=== PATIENT | female | born 1970 | race Caucasian/White ===

== ENCOUNTER 2021-08-25 21:36 | Emergency (ER) | payer MEDICAID ==
[~2021-08-25] VITALS: Ht 167.6 cm; Wt 68.2 kg
[2021-08-25] MEDS ORDERED: ASPI-1444 PO (21:53)
[2021-08-25 22:49] LABS: BASOPHILS % (AUTO) 1.1 % (0.0-2.0); EOSINOPHILS % (AUTO) 3.5 % (1.0-6.0); HEMATOCRIT 36.9 % (36-46); HEMOGLOBIN 12.7 g/dL (12.0-16.0); LYMPHOCYTES # (AUTO) 2.2 K/uL (1.0-4.8); LYMPHOCYTES % (AUTO) 37.5 % (22.0-44.0); MEAN CORPUSCULAR HEMOGLOBIN 31.4 pg (26.0-34.0); MEAN CORPUSCULAR HGB CONC 34.5 G/dL (31.0-37.0); MEAN CORPUSCULAR VOLUME 91 fL (80-100); MONOCYTES # (AUTO) 0.6 K/uL (0.1-1.0); NEUTROPHILS # (AUTO) 2.9 K/uL (1.8-7.7); NEUTROPHILS % (AUTO) 47.9 % (40.0-70.0); PLATELET COUNT (AUTO) 346 K/uL (150-450); RED BLOOD CELL COUNT(AUTO) 4.05 MIL/uL (4.00-5.20); RED CELL DISTRIBUTION WIDTH 16.2 % (11.5-14.5)
[2021-08-25 22:59] LABS: ANION GAP 11 mmol/L (8-16); CALCIUM, TOTAL 8.6 mg/dL (8.8-10.5); CARBON DIOXIDE 26 mmol/L (22-29); CHLORIDE 110 mmol/L (98-107); CREATININE 0.77 mg/dL (0.60-1.30); GLOMERULAR FILTR. RATE CALC > 60 mL/min (>60); GLUCOSE,RANDOM 99 mg/dL (70-110); POTASSIUM 3.5 mmol/L (3.5-5.1); SODIUM SERUM 147 mmol/L (136-145); UREA NITROGEN, BLOOD 15 mg/dL (7-18)
[2021-08-25 23:04] LABS: ALANINE AMINOTRANSFERASE 25 U/L (12-78); ALBUMIN 3.5 g/dL (3.4-5.0); ALKALINE PHOSPHATASE 79 U/L (46-116); ASPARTATE AMINOTRANSFERASE 34 U/L (15-37); BILIRUBIN,TOTAL 0.2 mg/dL (0.1-1.0); LIPASE 143 U/L (73-393); TOTAL PROTEIN, SERUM 7.1 g/dL (6.4-8.2)
[2021-08-25 23:35] VITALS: BP 155/85
== END 2021-08-26 00:01 | disposition home or self-care (01) ==
LOC: EMS 21:41
DX: S62.666A Nondisplaced fracture of distal phalanx of right little finger, initial encounter for closed fracture (principal); F31.9 Bipolar disorder, unspecified; E11.9 Type 2 diabetes mellitus without complications; Z86.79 Personal history of other diseases of the circulatory system; F17.210 Nicotine dependence, cigarettes, uncomplicated; Z88.8 Allergy status to other drugs, medicaments and biological substances; X58.XXXA Exposure to other specified factors, initial encounter; Y93.89 Activity, other specified; Y92.89 Other specified places as the place of occurrence of the external cause; Y99.8 Other external cause status
CPT/HCPCS: 80053; 83690; 85025; 99283; 99284

== ENCOUNTER 2023-07-25 08:37 | Inpatient (IN) | payer MEDICAID ==
[~2023-07-25] VITALS: Ht 167.6 cm; Wt 68.3 kg
[~2023-07-25 08:37] MED LIST: ASPI-1444 PO
[2023-07-25] MEDS ORDERED: ATOR-2 PO (08:47)
[2023-07-25] MEDS ORDERED: QUET100T34 PO (08:47)
[2023-07-25] MEDS ORDERED: ALBU18HF12 IH (08:47)
[2023-07-25] MEDS ORDERED: FLUO40CA PO (08:47)
[2023-07-25] MEDS ORDERED: METF-81 PO (08:47)
[2023-07-25] MEDS ORDERED: UMEC1DIS IH (08:47)
[2023-07-25] MEDS ORDERED: BUPR-317 PO (08:47)
[2023-07-25] MEDS ORDERED: BUDE3CAP7 PO (08:47)
[2023-07-25] MEDS ORDERED: GABA-1181 PO (08:47)
[2023-07-25 09:10] LABS: BASOPHILS % (AUTO) 0.6 % (0.0-2.0); EOSINOPHILS % (AUTO) 2.6 % (1.0-6.0); HEMATOCRIT 43.1 % (36-46); HEMOGLOBIN 14.1 g/dL (12.0-16.0); LYMPHOCYTES # (AUTO) 1.3 K/uL (1.0-4.8); LYMPHOCYTES % (AUTO) 11.6 % (22.0-44.0); MEAN CORPUSCULAR HGB CONC 32.7 G/dL (31.0-37.0); MEAN CORPUSCULAR VOLUME 89 fL (80-100); MONOCYTES % (AUTO) 8.7 % (2.0-9.0); NEUTROPHILS # (AUTO) 8.4 K/uL (1.8-7.7); NEUTROPHILS % (AUTO) 76.5 % (40.0-70.0); PLATELET COUNT (AUTO) 556 K/uL (150-450); RED BLOOD CELL COUNT(AUTO) 4.87 MIL/uL (4.00-5.20); RED CELL DISTRIBUTION WIDTH 14.8 % (11.5-14.5); WHITE BLOOD COUNT (AUTO) 11.1 K/uL (4.5-11.0)
[2023-07-25 09:20] LABS: PROTHROMBIN TIME 10.7 SEC (9.4-11.6)
[2023-07-25 09:21] LABS: ANION GAP 9 mmol/L (8-16); CALCIUM, TOTAL 10.1 mg/dL (8.8-10.5); CARBON DIOXIDE 26 mmol/L (22-29); CHLORIDE 103 mmol/L (98-107); CREATININE 0.83 mg/dL (0.60-1.30); GLOMERULAR FILTR. RATE CALC > 60 mL/min (>60); GLUCOSE,RANDOM 105 mg/dL (70-110); POTASSIUM 3.8 mmol/L (3.5-5.1); SODIUM SERUM 138 mmol/L (136-145); UREA NITROGEN, BLOOD 24 mg/dL (7-18)
[2023-07-25] MEDS: ASPIRIN 300 MG RECTAL SUPPOSITORY PR ONE (09:22)
[2023-07-25 09:25] LABS: ALANINE AMINOTRANSFERASE 19 U/L (12-78); ALBUMIN 2.7 g/dL (3.4-5.0); ALKALINE PHOSPHATASE 135 U/L (46-116); ASPARTATE AMINOTRANSFERASE 17 U/L (15-37); BILIRUBIN,TOTAL 0.3 mg/dL (0.1-1.0); TOTAL PROTEIN, SERUM 7.8 g/dL (6.4-8.2)
[2023-07-25 09:27] LABS: TROPONIN I-HIGH SENSITIVITY 6 ng/L (<51)
[2023-07-25] MEDS ORDERED: ONDANSETRON HCL 4 MG/2 ML VIAL IVP PRN ×2 (10:00→16:00)
[2023-07-25 13:00] VITALS: BP 118/62; PULSE 59; RESP 18; TEMP 98.2; O2SAT 95
[2023-07-25] MEDS ORDERED: PNEUMOCOCCAL VACCINE POLYVALENT 0.5 ML SYRINGE [PPSV23] IM. ONE (13:30)
[2023-07-25 15:57] VITALS: BP 109/69; PULSE 58; RESP 16; TEMP 97.7; O2SAT 95
[2023-07-25] MEDS ORDERED: ALBUTEROL SULFATE 2.5 MG/0.5 ML NEB SOLUTION NEB PRN (16:00)
[2023-07-25] MEDS ORDERED: MAGNESIUM HYDROXIDE SUSPENSION 30 ML UDCUP PO PRN (16:00)
[2023-07-25] MEDS: HEPARIN SODIUM,PORCINE 5,000 UNITS/ML VIAL SQ SCH (17:15)
[2023-07-25] MEDS: INSULIN LISPRO 100 UNITS/ML SQ PRN (17:17)
[2023-07-25 20:01] VITALS: BP 123/71; PULSE 60; RESP 17; TEMP 98.1; O2SAT 3; O2SAT 94
[2023-07-25] MEDS: DEXTROSE 5%-0.45% SODIUM CHL 1,000 ML IV SCH (20:52)
[2023-07-25] MEDS: ATORVASTATIN CALCIUM 20 MG TABLET PO SCH (21:00)
[2023-07-25] MEDS: DOCUSATE SODIUM 100 MG CAPSULE PO SCH (21:00)
[2023-07-26 00:29] VITALS: BP 120/65; PULSE 62; RESP 17; TEMP 98; O2SAT 95
[2023-07-26] MEDS: ZOLPIDEM TARTRATE 5 MG TABLET PO PRN (01:40)
[2023-07-26] MEDS ORDERED: ZOLPIDEM TARTRATE 5 MG TABLET PO PRN (01:45)
[2023-07-26 06:03] VITALS: BP 132/70; PULSE 80; RESP 18; TEMP 98.2; O2SAT 97
[2023-07-26 07:12] LABS: BASOPHILS % (AUTO) 0.6 % (0.0-2.0); EOSINOPHILS % (AUTO) 1.2 % (1.0-6.0); HEMATOCRIT 45.7 % (36-46); HEMOGLOBIN 14.9 g/dL (12.0-16.0); LYMPHOCYTES # (AUTO) 1.3 K/uL (1.0-4.8); LYMPHOCYTES % (AUTO) 8.2 % (22.0-44.0); MEAN CORPUSCULAR HEMOGLOBIN 29.1 pg (26.0-34.0); MEAN CORPUSCULAR HGB CONC 32.7 G/dL (31.0-37.0); MEAN CORPUSCULAR VOLUME 89 fL (80-100); MONOCYTES % (AUTO) 6.6 % (2.0-9.0); NEUTROPHILS # (AUTO) 13.2 K/uL (1.8-7.7); NEUTROPHILS % (AUTO) 83.4 % (40.0-70.0); PLATELET COUNT (AUTO) 600 K/uL (150-450); RED BLOOD CELL COUNT(AUTO) 5.12 MIL/uL (4.00-5.20); RED CELL DISTRIBUTION WIDTH 14.6 % (11.5-14.5); WHITE BLOOD COUNT (AUTO) 15.8 K/uL (4.5-11.0)
[2023-07-26 07:29] VITALS: BP 143/90; PULSE 74; RESP 18; TEMP 98.1; O2SAT 95
[2023-07-26 07:34] LABS: ANION GAP 12 mmol/L (8-16); CALCIUM, TOTAL 10.3 mg/dL (8.8-10.5); CARBON DIOXIDE 23 mmol/L (22-29); CHLORIDE 100 mmol/L (98-107); CHOLESTEROL 146 mg/dL (131-200); CREATININE 0.75 mg/dL (0.60-1.30); GLOMERULAR FILTR. RATE CALC > 60 mL/min (>60); GLUCOSE,RANDOM 108 mg/dL (70-110); HDL CHOLESTEROL 49 mg/dL (40-60); LDL CHOL (CALC.) 73 mg/dL (0-130); POTASSIUM 3.5 mmol/L (3.5-5.1); SODIUM SERUM 135 mmol/L (136-145); THYROID STIMULATING HORMONE 3.57 uIU/mL (0.36-3.74); TRIGLYCERIDES 119 mg/dL (15-150); UREA NITROGEN, BLOOD 23 mg/dL (7-18)
[2023-07-26] MEDS: ASPIRIN 81 MG CHEWABLE TABLET PO SCH (11:17)
[2023-07-26] MEDS: PANTOPRAZOLE SODIUM 40 MG DR TABLET PO SCH (11:17)
[2023-07-26 11:30] VITALS: BP 114/72; PULSE 66; RESP 19; TEMP 98; O2SAT 97
[2023-07-26 15:33] VITALS: BP 118/64; PULSE 57; RESP 19; TEMP 98.2; O2SAT 96
[2023-07-26 16:16] LABS: APPEARANCE,URINE CLEAR (CLEAR); BILIRUBIN,URINE NEGATIVE (NEGATIVE); COLOR,URINE YELLOW (YELLOW); GLUCOSE, URINE (UA) NEGATIVE (NEGATIVE); KETONES,URINE NEGATIVE (NEGATIVE); LEUKOCYTE ESTERASE ,URINE NEGATIVE (NEGATIVE); NITRATE,URINE NEGATIVE (NEGATIVE); OCCULT BLOOD,URINE NEGATIVE (NEGATIVE); PROTEIN,URINE NEGATIVE (NEGATIVE); SPECIFIC GRAVITIY, URINE 1.027 (1.003-1.030); UROBILINOGEN,URINE <=1.0 mg/dL (<=1.0)
[2023-07-26 16:23] LABS: ALCOHOL, URINE DRUG SCREEN NEGATIVE (NEGATIVE); AMPHET/METH SCREEN,URINE NEGATIVE (NEGATIVE); BARBITURATE SCREEN, URINE NEGATIVE (NEGATIVE); BENZODIAZEPINES SCREEN,URINE NEGATIVE (NEGATIVE); CANNABINOID SCREEN,URINE NEGATIVE (NEGATIVE); COCAINE SCREEN,URINE NEGATIVE (NEGATIVE); METHADONE SCREEN, URINE NEGATIVE (NEGATIVE); OPIATE SCREEN,URINE NEGATIVE (NEGATIVE); PHENCYCLIDINE SCREEN,URINE NEGATIVE (NEGATIVE)
[2023-07-26 16:35] LABS: BACTERIA,URINE None Seen /HPF (None Seen); RBC,URINE None Seen /HPF (0-2); SQUAMOUS EPITHELIAL CELL,UR Few /LPF (None Seen); WBC,URINE None Seen /HPF (0-5)
[2023-07-26] MEDS: CYCLOBENZAPRINE HCL 10 MG TABLET PO PRN (18:04)
[2023-07-26 19:20] VITALS: BP 116/63; PULSE 68; RESP 19; TEMP 98.1; O2SAT 96
[2023-07-26 21:36] LABS: GLUCOMETER DEV NAME(LOC) 5N.2C; GLUCOSE,POINT OF CARE 160 MG/DL (70-110)
[2023-07-27] VITALS: BP 121/70; PULSE 73; RESP 16; TEMP 98.3; O2SAT 96
[2023-07-27 04:00] VITALS: BP 114/82; PULSE 56; RESP 18; TEMP 98; O2SAT 96
[2023-07-27 06:16] LABS: ANION GAP 9 mmol/L (8-16); CALCIUM, TOTAL 10.2 mg/dL (8.8-10.5); CARBON DIOXIDE 25 mmol/L (22-29); CHLORIDE 103 mmol/L (98-107); CREATININE 0.81 mg/dL (0.60-1.30); GLOMERULAR FILTR. RATE CALC > 60 mL/min (>60); GLUCOSE,RANDOM 116 mg/dL (70-110); POTASSIUM 3.6 mmol/L (3.5-5.1); SODIUM SERUM 137 mmol/L (136-145); UREA NITROGEN, BLOOD 18 mg/dL (7-18)
[2023-07-27 06:22] LABS: BASOPHILS % (AUTO) 1.1 % (0.0-2.0); EOSINOPHILS % (AUTO) 2.9 % (1.0-6.0); HEMATOCRIT 41.5 % (36-46); HEMOGLOBIN 13.7 g/dL (12.0-16.0); LYMPHOCYTES # (AUTO) 1.6 K/uL (1.0-4.8); LYMPHOCYTES % (AUTO) 14.1 % (22.0-44.0); MEAN CORPUSCULAR HEMOGLOBIN 29.1 pg (26.0-34.0); MEAN CORPUSCULAR HGB CONC 33.1 G/dL (31.0-37.0); MEAN CORPUSCULAR VOLUME 88 fL (80-100); MONOCYTES # (AUTO) 0.8 K/uL (0.1-1.0); MONOCYTES % (AUTO) 6.8 % (2.0-9.0); NEUTROPHILS # (AUTO) 8.7 K/uL (1.8-7.7); NEUTROPHILS % (AUTO) 75.1 % (40.0-70.0); PLATELET COUNT (AUTO) 576 K/uL (150-450); RED BLOOD CELL COUNT(AUTO) 4.71 MIL/uL (4.00-5.20); RED CELL DISTRIBUTION WIDTH 14.8 % (11.5-14.5); WHITE BLOOD COUNT (AUTO) 11.5 K/uL (4.5-11.0)
[2023-07-27 07:30] VITALS: BP 122/67; PULSE 67; RESP 18; TEMP 97.7; O2SAT 99
[2023-07-27] MEDS: CLOPIDOGREL BISULFATE 75 MG TABLET PO SCH (09:23)
[2023-07-27 11:07] LABS: LDL CHOLESTEROL DIRECT 68 mg/dL (0-99)
[2023-07-27 11:48] VITALS: BP 112/62; PULSE 66; RESP 16; TEMP 97.6; O2SAT 99
[2023-07-27] MEDS: ALPRAZolam 0.25 MG TABLET PO PRN (12:34)
[2023-07-27 15:18] VITALS: BP 121/62; PULSE 79; RESP 18; TEMP 97.7; O2SAT 95
[2023-07-27 22:09] VITALS: BP 105/64; PULSE 80; RESP 18; TEMP 97.7; O2SAT 97
[2023-07-28] MEDS: ALPRAZolam 0.5 MG TABLET PO PRN (02:34)
[2023-07-28 05:08] VITALS: BP 119/72; PULSE 82; RESP 18; TEMP 97.9; O2SAT 95
[2023-07-28 06:36] LABS: GLUCOMETER DEV NAME(LOC) 4E.2; GLUCOSE,POINT OF CARE 121 MG/DL (70-110)
[2023-07-28 06:56] LABS: GLUCOMETER DEV NAME(LOC) 6S.2; GLUCOSE,POINT OF CARE 115 MG/DL (70-110)
[2023-07-28 07:17] LABS: BASOPHILS % (AUTO) 0.6 % (0.0-2.0); EOSINOPHILS % (AUTO) 3.3 % (1.0-6.0); HEMATOCRIT 42.4 % (36-46); HEMOGLOBIN 14.2 g/dL (12.0-16.0); LYMPHOCYTES # (AUTO) 1.8 K/uL (1.0-4.8); LYMPHOCYTES % (AUTO) 16.1 % (22.0-44.0); MEAN CORPUSCULAR HEMOGLOBIN 29.5 pg (26.0-34.0); MEAN CORPUSCULAR HGB CONC 33.4 G/dL (31.0-37.0); MEAN CORPUSCULAR VOLUME 88 fL (80-100); MONOCYTES # (AUTO) 0.9 K/uL (0.1-1.0); MONOCYTES % (AUTO) 8.1 % (2.0-9.0); NEUTROPHILS % (AUTO) 71.9 % (40.0-70.0); PLATELET COUNT (AUTO) 537 K/uL (150-450); RED BLOOD CELL COUNT(AUTO) 4.81 MIL/uL (4.00-5.20); RED CELL DISTRIBUTION WIDTH 14.7 % (11.5-14.5); WHITE BLOOD COUNT (AUTO) 11.2 K/uL (4.5-11.0)
[2023-07-28 07:48] LABS: ANION GAP 10 mmol/L (8-16); CALCIUM, TOTAL 10.2 mg/dL (8.8-10.5); CARBON DIOXIDE 25 mmol/L (22-29); CHLORIDE 102 mmol/L (98-107); CREATININE 0.88 mg/dL (0.60-1.30); GLOMERULAR FILTR. RATE CALC > 60 mL/min (>60); GLUCOSE,RANDOM 108 mg/dL (70-110); POTASSIUM 3.7 mmol/L (3.5-5.1); SODIUM SERUM 137 mmol/L (136-145); UREA NITROGEN, BLOOD 19 mg/dL (7-18)
[2023-07-28 08:00] VITALS: BP 103/61; PULSE 74; RESP 18; TEMP 98; O2SAT 96
[2023-07-28 12:08] LABS: GLUCOMETER DEV NAME(LOC) 5N.1C; GLUCOSE,POINT OF CARE 206 MG/DL (70-110)
[2023-07-28 12:09] LABS: GLUCOMETER DEV NAME(LOC) 5N.1C; GLUCOSE,POINT OF CARE 78 MG/DL (70-110)
[2023-07-28 12:09] LABS: GLUCOMETER DEV NAME(LOC) 5N.1C; GLUCOSE,POINT OF CARE 103 MG/DL (70-110)
[2023-07-28 12:09] LABS: GLUCOMETER DEV NAME(LOC) 5N.1C; GLUCOSE,POINT OF CARE 119 MG/DL (70-110)
[2023-07-28 12:25] LABS: GLUCOMETER DEV NAME(LOC) 5S.1B; GLUCOSE,POINT OF CARE 106 MG/DL (70-110)
[2023-07-28 12:25] LABS: GLUCOMETER DEV NAME(LOC) 5S.1B; GLUCOSE,POINT OF CARE 115 MG/DL (70-110)
[2023-07-28 12:25] LABS: GLUCOMETER DEV NAME(LOC) 5S.1B; GLUCOSE,POINT OF CARE 152 MG/DL (70-110)
[2023-07-28 12:25] LABS: GLUCOMETER DEV NAME(LOC) 5S.1B; GLUCOSE,POINT OF CARE 104 MG/DL (70-110)
[2023-07-28 13:41] LABS: GLUCOMETER DEV NAME(LOC) 6S.2; GLUCOSE,POINT OF CARE 105 MG/DL (70-110)
[2023-07-28 17:11] VITALS: BP 108/56; PULSE 78; RESP 18; TEMP 98.6; O2SAT 94
[2023-07-28 18:26] LABS: GLUCOMETER DEV NAME(LOC) 4E.2; GLUCOSE,POINT OF CARE 120 MG/DL (70-110)
[2023-07-28] MEDS: ATORVASTATIN CALCIUM 40 MG TABLET PO SCH (20:12)
[2023-07-28 20:22] VITALS: BP 104/58; PULSE 78; RESP 17; TEMP 98.6; O2SAT 94
[2023-07-29 06:53] VITALS: BP 118/77; PULSE 70; RESP 19; TEMP 98; O2SAT 98
[2023-07-29 08:30] VITALS: BP 129/68; PULSE 75; RESP 18; TEMP 98.9; O2SAT 94
[2023-07-29 12:30] LABS: GLUCOMETER DEV NAME(LOC) 6N.2B; GLUCOSE,POINT OF CARE 131 MG/DL (70-110)
[2023-07-29 12:30] LABS: GLUCOMETER DEV NAME(LOC) 6N.2B; GLUCOSE,POINT OF CARE 127 MG/DL (70-110)
[2023-07-29 12:31] LABS: GLUCOMETER DEV NAME(LOC) 6N.2B; GLUCOSE,POINT OF CARE 110 MG/DL (70-110)
[2023-07-29] MEDS ORDERED: LIDOCAINE 5% TRANSDERMAL PATCH TD PRN (14:00)
[2023-07-29 14:30] LABS: EOSINOPHILS % (AUTO) 3.1 % (1.0-6.0); HEMATOCRIT 45.5 % (36-46); HEMOGLOBIN 14.8 g/dL (12.0-16.0); LYMPHOCYTES # (AUTO) 1.7 K/uL (1.0-4.8); LYMPHOCYTES % (AUTO) 14.8 % (22.0-44.0); MEAN CORPUSCULAR HEMOGLOBIN 28.9 pg (26.0-34.0); MEAN CORPUSCULAR HGB CONC 32.5 G/dL (31.0-37.0); MEAN CORPUSCULAR VOLUME 89 fL (80-100); MONOCYTES # (AUTO) 0.7 K/uL (0.1-1.0); MONOCYTES % (AUTO) 5.7 % (2.0-9.0); NEUTROPHILS # (AUTO) 8.8 K/uL (1.8-7.7); NEUTROPHILS % (AUTO) 75.4 % (40.0-70.0); PLATELET COUNT (AUTO) 609 K/uL (150-450); RED BLOOD CELL COUNT(AUTO) 5.12 MIL/uL (4.00-5.20); RED CELL DISTRIBUTION WIDTH 14.6 % (11.5-14.5); WHITE BLOOD COUNT (AUTO) 11.7 K/uL (4.5-11.0)
[2023-07-29 14:46] LABS: ANION GAP 8 mmol/L (8-16); CALCIUM, TOTAL 10.4 mg/dL (8.8-10.5); CARBON DIOXIDE 26 mmol/L (22-29); CHLORIDE 101 mmol/L (98-107); CREATININE 0.82 mg/dL (0.60-1.30); GLOMERULAR FILTR. RATE CALC > 60 mL/min (>60); GLUCOSE,RANDOM 137 mg/dL (70-110); POTASSIUM 3.9 mmol/L (3.5-5.1); SODIUM SERUM 135 mmol/L (136-145); UREA NITROGEN, BLOOD 18 mg/dL (7-18)
[2023-07-29] MEDS ORDERED: IOHEXOL 350 MG/ML 100 ML VIAL ONE (15:28)
[2023-07-29] MEDS ORDERED: SODIUM CHLORIDE 0.9% 100 ML ONE (15:28)
[2023-07-29 16:00] VITALS: BP 111/73; PULSE 69; RESP 18; TEMP 98.8; O2SAT 95
[2023-07-29 19:51] LABS: GLUCOMETER DEV NAME(LOC) 6N.2B; GLUCOSE,POINT OF CARE 107 MG/DL (70-110)
[2023-07-29 20:41] VITALS: BP 110/68; PULSE 75; RESP 18; TEMP 98.3; O2SAT 94
[2023-07-30 02:34] LABS: APPEARANCE,URINE CLEAR (CLEAR); BILIRUBIN,URINE NEGATIVE (NEGATIVE); COLOR,URINE LIGHT YELLOW (YELLOW); GLUCOSE, URINE (UA) NEGATIVE (NEGATIVE); KETONES,URINE NEGATIVE (NEGATIVE); LEUKOCYTE ESTERASE ,URINE TRACE (NEGATIVE); NITRATE,URINE NEGATIVE (NEGATIVE); OCCULT BLOOD,URINE NEGATIVE (NEGATIVE); PH,URINE 6.5 (5.0-8.0); PROTEIN,URINE TRACE mg/dL (NEGATIVE); UROBILINOGEN,URINE <=1.0 mg/dL (<=1.0)
[2023-07-30 02:48] LABS: BACTERIA,URINE None Seen /HPF (None Seen); CALCIUM OXALATE CRYSTALS,UR Few /LPF (None Seen); FINE GRANULAR CASTS,URINE 0-2 /LPF (None Seen); RBC,URINE None Seen /HPF (0-2); SQUAMOUS EPITHELIAL CELL,UR Few /LPF (None Seen); WBC,URINE 0-2 /HPF (0-5)
[2023-07-30 03:26] VITALS: BP 102/63; PULSE 76; RESP 18; TEMP 98.5; O2SAT 96
[2023-07-30] MEDS: HYDROmorphone HCL 2 MG/ML SYRINGE IVP PRN (03:26)
[2023-07-30 07:49] LABS: BASOPHILS % (AUTO) 1.3 % (0.0-2.0); EOSINOPHILS % (AUTO) 3.8 % (1.0-6.0); HEMATOCRIT 42.6 % (36-46); HEMOGLOBIN 14.2 g/dL (12.0-16.0); LYMPHOCYTES # (AUTO) 1.9 K/uL (1.0-4.8); LYMPHOCYTES % (AUTO) 14.7 % (22.0-44.0); MEAN CORPUSCULAR HEMOGLOBIN 29.2 pg (26.0-34.0); MEAN CORPUSCULAR HGB CONC 33.3 G/dL (31.0-37.0); MEAN CORPUSCULAR VOLUME 88 fL (80-100); MONOCYTES # (AUTO) 0.9 K/uL (0.1-1.0); MONOCYTES % (AUTO) 6.9 % (2.0-9.0); NEUTROPHILS # (AUTO) 9.2 K/uL (1.8-7.7); NEUTROPHILS % (AUTO) 73.3 % (40.0-70.0); PLATELET COUNT (AUTO) 607 K/uL (150-450); RED BLOOD CELL COUNT(AUTO) 4.86 MIL/uL (4.00-5.20); RED CELL DISTRIBUTION WIDTH 14.9 % (11.5-14.5); WHITE BLOOD COUNT (AUTO) 12.6 K/uL (4.5-11.0)
[2023-07-30 07:59] LABS: ANION GAP 10 mmol/L (8-16); CARBON DIOXIDE 25 mmol/L (22-29); CHLORIDE 100 mmol/L (98-107); CREATININE 0.89 mg/dL (0.60-1.30); GLUCOSE,RANDOM 123 mg/dL (70-110); POTASSIUM 3.9 mmol/L (3.5-5.1); SODIUM SERUM 135 mmol/L (136-145); UREA NITROGEN, BLOOD 19 mg/dL (7-18)
[2023-07-30 08:00] LABS: CALCIUM, TOTAL 10.4 mg/dL (8.8-10.5); GLOMERULAR FILTR. RATE CALC > 60 mL/min (>60)
[2023-07-30 09:20] VITALS: BP 106/61; PULSE 73; RESP 18; TEMP 98.3
[2023-07-30 09:26] LABS: GLUCOMETER DEV NAME(LOC) 6N.2B; GLUCOSE,POINT OF CARE 129 MG/DL (70-110)
[2023-07-30 09:26] LABS: GLUCOMETER DEV NAME(LOC) 6N.2B; GLUCOSE,POINT OF CARE 119 MG/DL (70-110)
[2023-07-30 11:46] VITALS: BP 106/61; PULSE 73; RESP 18; TEMP 98.3; O2SAT 90
[2023-07-30] MEDS ORDERED: SODIUM CHLORIDE 0.9% 500 ML IV ONE (14:38)
[2023-07-30] MEDS: CefTRIAXone 1 GM/DEXTROSE 50 ML IV SCH (14:48)
[2023-07-30] MEDS ORDERED: CEFT1VIA65 IV (15:38)
[2023-07-30] MEDS ORDERED: METR500 IV (15:43)
[2023-07-30 15:50] LABS: GLUCOMETER DEV NAME(LOC) 4E.2; GLUCOSE,POINT OF CARE 112 MG/DL (70-110)
[2023-07-30] MEDS: MetroNIDAZOLE 500 MG/NACL 100 ML IV SCH (16:12)
[2023-07-30 16:37] VITALS: BP 104/67; PULSE 74; RESP 18; TEMP 98.1; O2SAT 91
[2023-07-30 17:56] LABS: GLUCOMETER DEV NAME(LOC) 6S.2; GLUCOSE,POINT OF CARE 111 MG/DL (70-110)
[2023-07-30 20:02] VITALS: BP 104/56; PULSE 79; RESP 20; TEMP 97.9; O2SAT 94
[2023-07-30] MEDS ORDERED: SODIUM CHLORIDE 0.9% 1,000 ML ONE (22:08)
[2023-07-30 23:06] LABS: GLUCOMETER DEV NAME(LOC) 6N.2B; GLUCOSE,POINT OF CARE 111 MG/DL (70-110)
[2023-07-31] VITALS (7 sets, daily range): BP systolic 96–112; BP diastolic 56–70; PULSE 63–78; RESP 18–20; TEMP 98–98.3; O2SAT 92–97
[2023-07-31] MEDS: DEXTROSE 50%-WATER 25 GM/50 ML SYRINGE IVP PRN (05:41)
[2023-07-31 07:31] LABS: GLUCOMETER DEV NAME(LOC) 6S.2; GLUCOSE,POINT OF CARE 218 MG/DL (70-110)
[2023-07-31 07:31] LABS: GLUCOMETER DEV NAME(LOC) 6S.2; GLUCOSE,POINT OF CARE 68 MG/DL (70-110)
[2023-07-31 07:49] LABS: EOSINOPHILS % (AUTO) 4.8 % (1.0-6.0); HEMATOCRIT 40.9 % (36-46); HEMOGLOBIN 13.7 g/dL (12.0-16.0); LYMPHOCYTES # (AUTO) 1.4 K/uL (1.0-4.8); MEAN CORPUSCULAR HEMOGLOBIN 29.6 pg (26.0-34.0); MEAN CORPUSCULAR HGB CONC 33.6 G/dL (31.0-37.0); MEAN CORPUSCULAR VOLUME 88 fL (80-100); MONOCYTES # (AUTO) 0.9 K/uL (0.1-1.0); MONOCYTES % (AUTO) 7.2 % (2.0-9.0); PLATELET COUNT (AUTO) 561 K/uL (150-450); RED BLOOD CELL COUNT(AUTO) 4.64 MIL/uL (4.00-5.20); RED CELL DISTRIBUTION WIDTH 14.7 % (11.5-14.5)
[2023-07-31 07:58] LABS: ANION GAP 9 mmol/L (8-16); CALCIUM, TOTAL 9.9 mg/dL (8.8-10.5); CARBON DIOXIDE 26 mmol/L (22-29); CHLORIDE 99 mmol/L (98-107); CREATININE 0.93 mg/dL (0.60-1.30); GLOMERULAR FILTR. RATE CALC > 60 mL/min (>60); GLUCOSE,RANDOM 182 mg/dL (70-110); POTASSIUM 3.6 mmol/L (3.5-5.1); SODIUM SERUM 134 mmol/L (136-145); UREA NITROGEN, BLOOD 21 mg/dL (7-18)
[2023-07-31] MEDS ORDERED: IOHEXOL 350 MG/ML 100 ML VIAL ONE (08:15)
[2023-07-31] MEDS ORDERED: SODIUM CHLORIDE 0.9% 100 ML ONE (08:15)
[2023-07-31 19:06] LABS: GLUCOMETER DEV NAME(LOC) 6N.2B; GLUCOSE,POINT OF CARE 114 MG/DL (70-110)
[2023-07-31 19:06] LABS: GLUCOMETER DEV NAME(LOC) 4E.2; GLUCOSE,POINT OF CARE 111 MG/DL (70-110)
[2023-08-01 04:53] VITALS: BP 116/58; PULSE 67; RESP 17; TEMP 98.2
[2023-08-01 06:31] LABS: GLUCOMETER DEV NAME(LOC) 6N.2B; GLUCOSE,POINT OF CARE 95 MG/DL (70-110)
[2023-08-01 06:31] LABS: GLUCOMETER DEV NAME(LOC) 4E.2; GLUCOSE,POINT OF CARE 116 MG/DL (70-110)
[2023-08-01 07:18] LABS: BASOPHILS % (AUTO) 0.7 % (0.0-2.0); EOSINOPHILS % (AUTO) 4.5 % (1.0-6.0); HEMATOCRIT 42.6 % (36-46); HEMOGLOBIN 14.3 g/dL (12.0-16.0); LYMPHOCYTES # (AUTO) 1.2 K/uL (1.0-4.8); LYMPHOCYTES % (AUTO) 11.4 % (22.0-44.0); MEAN CORPUSCULAR HEMOGLOBIN 29.9 pg (26.0-34.0); MEAN CORPUSCULAR HGB CONC 33.6 G/dL (31.0-37.0); MEAN CORPUSCULAR VOLUME 89 fL (80-100); MONOCYTES # (AUTO) 0.9 K/uL (0.1-1.0); MONOCYTES % (AUTO) 8.5 % (2.0-9.0); NEUTROPHILS # (AUTO) 7.7 K/uL (1.8-7.7); NEUTROPHILS % (AUTO) 74.9 % (40.0-70.0); PLATELET COUNT (AUTO) 529 K/uL (150-450); RED BLOOD CELL COUNT(AUTO) 4.78 MIL/uL (4.00-5.20); WHITE BLOOD COUNT (AUTO) 10.3 K/uL (4.5-11.0)
[2023-08-01 07:30] LABS: ALANINE AMINOTRANSFERASE 15 U/L (12-78); ALBUMIN 2.5 g/dL (3.4-5.0); ALKALINE PHOSPHATASE 115 U/L (46-116); ANION GAP 7 mmol/L (8-16); ASPARTATE AMINOTRANSFERASE 17 U/L (15-37); BILIRUBIN,TOTAL 0.4 mg/dL (0.1-1.0); CALCIUM, TOTAL 9.8 mg/dL (8.8-10.5); CARBON DIOXIDE 28 mmol/L (22-29); CHLORIDE 100 mmol/L (98-107); CREATININE 0.89 mg/dL (0.60-1.30); GLOMERULAR FILTR. RATE CALC > 60 mL/min (>60); GLUCOSE,RANDOM 96 mg/dL (70-110); POTASSIUM 3.9 mmol/L (3.5-5.1); SODIUM SERUM 135 mmol/L (136-145); TOTAL PROTEIN, SERUM 7.2 g/dL (6.4-8.2); UREA NITROGEN, BLOOD 16 mg/dL (7-18)
[2023-08-01] MEDS: MULTIVITAMINS WITH MINERALS, THERAPEUTIC TABLET PO SCH (08:29)
[2023-08-01 08:41] VITALS: BP 102/58; PULSE 73; RESP 18; TEMP 98.4
[2023-08-01 09:54] LABS: PLATELET MORPHOLOGY COMMENT GIANT PLTS PRESENT
[2023-08-01 16:42] VITALS: BP 100/54; PULSE 70; RESP 18; TEMP 98.8
[2023-08-01 17:35] LABS: GLUCOMETER DEV NAME(LOC) 6N.2B; GLUCOSE,POINT OF CARE 130 MG/DL (70-110)
[2023-08-01 20:31] LABS: GLUCOMETER DEV NAME(LOC) 6S.2; GLUCOSE,POINT OF CARE 83 MG/DL (70-110)
[2023-08-01 20:40] VITALS: BP 99/62; PULSE 73; RESP 18; TEMP 97.9
[2023-08-02 02:26] LABS: GLUCOMETER DEV NAME(LOC) 6N.2B; GLUCOSE,POINT OF CARE 99 MG/DL (70-110)
[2023-08-02 04:57] VITALS: BP 113/58; PULSE 70; RESP 18; TEMP 98.3
[2023-08-02] MEDS ORDERED: SODIUM CHLORIDE 0.9% 500 ML IV ONE (05:06)
[2023-08-02 07:27] VITALS: BP 103/55; PULSE 62; RESP 18; TEMP 98
[2023-08-02 07:59] LABS: EOSINOPHILS % (AUTO) 4.4 % (1.0-6.0); HEMATOCRIT 39.4 % (36-46); HEMOGLOBIN 13.3 g/dL (12.0-16.0); LYMPHOCYTES # (AUTO) 1.1 K/uL (1.0-4.8); LYMPHOCYTES % (AUTO) 11.2 % (22.0-44.0); MEAN CORPUSCULAR HEMOGLOBIN 29.9 pg (26.0-34.0); MEAN CORPUSCULAR HGB CONC 33.7 G/dL (31.0-37.0); MEAN CORPUSCULAR VOLUME 89 fL (80-100); MONOCYTES # (AUTO) 1.1 K/uL (0.1-1.0); MONOCYTES % (AUTO) 10.9 % (2.0-9.0); NEUTROPHILS % (AUTO) 72.5 % (40.0-70.0); PLATELET COUNT (AUTO) 554 K/uL (150-450); RED BLOOD CELL COUNT(AUTO) 4.44 MIL/uL (4.00-5.20); RED CELL DISTRIBUTION WIDTH 14.8 % (11.5-14.5); WHITE BLOOD COUNT (AUTO) 9.7 K/uL (4.5-11.0)
[2023-08-02 08:17] LABS: ANION GAP 8 mmol/L (8-16); CALCIUM, TOTAL 9.4 mg/dL (8.8-10.5); CARBON DIOXIDE 26 mmol/L (22-29); CHLORIDE 101 mmol/L (98-107); CREATININE 0.89 mg/dL (0.60-1.30); GLOMERULAR FILTR. RATE CALC > 60 mL/min (>60); GLUCOSE,RANDOM 97 mg/dL (70-110); POTASSIUM 3.6 mmol/L (3.5-5.1); SODIUM SERUM 135 mmol/L (136-145); UREA NITROGEN, BLOOD 14 mg/dL (7-18)
[2023-08-02 15:43] VITALS: BP 117/83; PULSE 66; RESP 18; TEMP 98.6
[2023-08-02 19:01] LABS: GLUCOMETER DEV NAME(LOC) 4E.2; GLUCOSE,POINT OF CARE 104 MG/DL (70-110)
[2023-08-02 19:01] LABS: GLUCOMETER DEV NAME(LOC) 6S.2; GLUCOSE,POINT OF CARE 167 MG/DL (70-110)
[2023-08-02 19:01] LABS: GLUCOMETER DEV NAME(LOC) 6S.2; GLUCOSE,POINT OF CARE 159 MG/DL (70-110)
[2023-08-02 21:00] VITALS: BP 100/55; PULSE 65; RESP 18; TEMP 98.5
[2023-08-03 05:30] VITALS: BP 100/61; PULSE 66; RESP 18; TEMP 98
[2023-08-03 07:30] VITALS: BP 98/63; PULSE 59; RESP 17; TEMP 98.8; O2SAT 95
[2023-08-03 08:03] LABS: BASOPHILS % (AUTO) 0.8 % (0.0-2.0); EOSINOPHILS % (AUTO) 4.9 % (1.0-6.0); HEMATOCRIT 38.7 % (36-46); LYMPHOCYTES # (AUTO) 1.1 K/uL (1.0-4.8); LYMPHOCYTES % (AUTO) 11.6 % (22.0-44.0); MEAN CORPUSCULAR HEMOGLOBIN 29.8 pg (26.0-34.0); MEAN CORPUSCULAR HGB CONC 33.6 G/dL (31.0-37.0); MEAN CORPUSCULAR VOLUME 89 fL (80-100); MONOCYTES # (AUTO) 1.2 K/uL (0.1-1.0); MONOCYTES % (AUTO) 12.7 % (2.0-9.0); NEUTROPHILS # (AUTO) 6.7 K/uL (1.8-7.7); PLATELET COUNT (AUTO) 538 K/uL (150-450); RED BLOOD CELL COUNT(AUTO) 4.36 MIL/uL (4.00-5.20); RED CELL DISTRIBUTION WIDTH 14.5 % (11.5-14.5); WHITE BLOOD COUNT (AUTO) 9.5 K/uL (4.5-11.0)
[2023-08-03 08:07] LABS: ANION GAP 8 mmol/L (8-16); CALCIUM, TOTAL 9.3 mg/dL (8.8-10.5); CARBON DIOXIDE 27 mmol/L (22-29); CHLORIDE 103 mmol/L (98-107); CREATININE 0.86 mg/dL (0.60-1.30); GLOMERULAR FILTR. RATE CALC > 60 mL/min (>60); GLUCOSE,RANDOM 80 mg/dL (70-110); POTASSIUM 3.6 mmol/L (3.5-5.1); SODIUM SERUM 137 mmol/L (136-145); UREA NITROGEN, BLOOD 15 mg/dL (7-18)
[2023-08-03 08:10] LABS: GLUCOMETER DEV NAME(LOC) 6N.2B; GLUCOSE,POINT OF CARE 164 MG/DL (70-110)
[2023-08-03 08:10] LABS: GLUCOMETER DEV NAME(LOC) 6N.2B; GLUCOSE,POINT OF CARE 135 MG/DL (70-110)
[2023-08-03] MEDS: TraMADol HCL 50 MG TABLET PO PRN (08:35)
[2023-08-03 11:13] VITALS: BP 101/61; PULSE 61; RESP 20
[2023-08-03 13:10] LABS: GLUCOMETER DEV NAME(LOC) 4E.2; GLUCOSE,POINT OF CARE 90 MG/DL (70-110)
[2023-08-03] MEDS ORDERED: QUET25TA PO (15:22)
[2023-08-03] MEDS ORDERED: ASPI81TA87 PO (15:25)
[2023-08-03] MEDS ORDERED: CLOP75TA60 PO (15:26)
[2023-08-03] MEDS ORDERED: DOCU100C33 PO (15:28)
[2023-08-03] MEDS ORDERED: MULT-248 PO (15:29)
[2023-08-03] MEDS ORDERED: PANT-31 PO (15:33)
[2023-08-03] MEDS ORDERED: ALPR0.5T PO (15:36)
[2023-08-03] MEDS ORDERED: BISA10SU11 PR (15:46)
[2023-08-03] MEDS ORDERED: CYCL-397 PO (15:48)
[2023-08-03] MEDS ORDERED: INSU100V SQ (15:50)
[2023-08-03] MEDS ORDERED: LIDO700A15 TD (15:52)
[2023-08-03] MEDS ORDERED: TRAM50TA5 PO (15:53)
[2023-08-03] MEDS ORDERED: ZOLP-280 PO (15:54)
[2023-08-03 16:29] VITALS: BP 119/82; PULSE 75; RESP 20
[2023-08-03 19:20] VITALS: BP 94/52; PULSE 101; RESP 18; TEMP 97.8
[2023-08-03 20:20] LABS: GLUCOMETER DEV NAME(LOC) 4E.2; GLUCOSE,POINT OF CARE 85 MG/DL (70-110)
[2023-08-03 21:22] VITALS: BP 100/64; RESP 19
[2023-08-03 22:55] LABS: GLUCOMETER DEV NAME(LOC) 6S.2; GLUCOSE,POINT OF CARE 121 MG/DL (70-110)
[2023-08-03 22:55] LABS: GLUCOMETER DEV NAME(LOC) 6S.2; GLUCOSE,POINT OF CARE 73 MG/DL (70-110)
[2023-08-04 03:18] VITALS: BP 104/61; PULSE 60; RESP 19; TEMP 97.4
[2023-08-04 07:31] LABS: GLUCOMETER DEV NAME(LOC) 4E.2; GLUCOSE,POINT OF CARE 92 MG/DL (70-110)
[2023-08-04 08:23] LABS: BASOPHILS % (AUTO) 0.9 % (0.0-2.0); EOSINOPHILS % (AUTO) 4.7 % (1.0-6.0); HEMATOCRIT 38.1 % (36-46); HEMOGLOBIN 12.7 g/dL (12.0-16.0); LYMPHOCYTES # (AUTO) 1.3 K/uL (1.0-4.8); LYMPHOCYTES % (AUTO) 13.9 % (22.0-44.0); MEAN CORPUSCULAR HEMOGLOBIN 29.5 pg (26.0-34.0); MEAN CORPUSCULAR HGB CONC 33.3 G/dL (31.0-37.0); MEAN CORPUSCULAR VOLUME 89 fL (80-100); MONOCYTES # (AUTO) 0.9 K/uL (0.1-1.0); NEUTROPHILS # (AUTO) 6.6 K/uL (1.8-7.7); NEUTROPHILS % (AUTO) 70.5 % (40.0-70.0); PLATELET COUNT (AUTO) 547 K/uL (150-450); WHITE BLOOD COUNT (AUTO) 9.4 K/uL (4.5-11.0)
[2023-08-04 08:39] LABS: ANION GAP 8 mmol/L (8-16); CALCIUM, TOTAL 9.4 mg/dL (8.8-10.5); CARBON DIOXIDE 26 mmol/L (22-29); CHLORIDE 103 mmol/L (98-107); CREATININE 0.83 mg/dL (0.60-1.30); GLOMERULAR FILTR. RATE CALC > 60 mL/min (>60); GLUCOSE,RANDOM 99 mg/dL (70-110); POTASSIUM 3.8 mmol/L (3.5-5.1); SODIUM SERUM 136 mmol/L (136-145); UREA NITROGEN, BLOOD 11 mg/dL (7-18)
[2023-08-04 08:52] VITALS: BP 101/59; PULSE 63; RESP 18; TEMP 97.7
[2023-08-04 12:45] LABS: GLUCOMETER DEV NAME(LOC) 6S.2; GLUCOSE,POINT OF CARE 93 MG/DL (70-110)
[2023-08-04 15:57] VITALS: BP 98/56; PULSE 54; RESP 18; TEMP 97.3
[2023-08-04 18:51] LABS: GLUCOMETER DEV NAME(LOC) 6N.2B; GLUCOSE,POINT OF CARE 93 MG/DL (70-110)
[2023-08-04 19:48] VITALS: BP 95/53; PULSE 59; RESP 18; TEMP 97.5
[2023-08-04 20:29] VITALS: BP 104/61; RESP 18
[2023-08-05 00:20] LABS: GLUCOMETER DEV NAME(LOC) 6N.2B; GLUCOSE,POINT OF CARE 161 MG/DL (70-110)
[2023-08-05] MEDS: BISACODYL 10 MG RECTAL RECTAL SUPPOSITORY PR PRN (01:41)
[2023-08-05 04:20] VITALS: BP 100/64; PULSE 65; RESP 18; TEMP 98.1
[2023-08-05 07:37] LABS: HEMATOCRIT 41.3 % (36-46); HEMOGLOBIN 13.6 g/dL (12.0-16.0); LYMPHOCYTES # (AUTO) 1.3 K/uL (1.0-4.8); LYMPHOCYTES % (AUTO) 14.3 % (22.0-44.0); MEAN CORPUSCULAR HEMOGLOBIN 29.3 pg (26.0-34.0); MEAN CORPUSCULAR VOLUME 89 fL (80-100); MONOCYTES # (AUTO) 0.8 K/uL (0.1-1.0); MONOCYTES % (AUTO) 9.4 % (2.0-9.0); NEUTROPHILS # (AUTO) 6.2 K/uL (1.8-7.7); NEUTROPHILS % (AUTO) 70.3 % (40.0-70.0); PLATELET COUNT (AUTO) 541 K/uL (150-450); RED BLOOD CELL COUNT(AUTO) 4.66 MIL/uL (4.00-5.20); RED CELL DISTRIBUTION WIDTH 14.7 % (11.5-14.5); WHITE BLOOD COUNT (AUTO) 8.8 K/uL (4.5-11.0)
[2023-08-05 07:47] LABS: ANION GAP 9 mmol/L (8-16); CALCIUM, TOTAL 9.1 mg/dL (8.8-10.5); CARBON DIOXIDE 25 mmol/L (22-29); CHLORIDE 101 mmol/L (98-107); CREATININE 0.81 mg/dL (0.60-1.30); GLOMERULAR FILTR. RATE CALC > 60 mL/min (>60); GLUCOSE,RANDOM 99 mg/dL (70-110); POTASSIUM 3.7 mmol/L (3.5-5.1); SODIUM SERUM 135 mmol/L (136-145); UREA NITROGEN, BLOOD 10 mg/dL (7-18)
[2023-08-05 07:59] VITALS: BP 104/58; PULSE 60; RESP 18; TEMP 97.9
[2023-08-05 12:00] LABS: GLUCOMETER DEV NAME(LOC) 4E.2; GLUCOSE,POINT OF CARE 95 MG/DL (70-110)
[2023-08-05] MEDS ORDERED: SODIUM CHLORIDE 0.9% 500 ML IV ONE (14:50)
[2023-08-05 16:09] VITALS: BP 98/55; PULSE 60; RESP 18; TEMP 98
[2023-08-05 18:10] LABS: GLUCOMETER DEV NAME(LOC) 6S.2; GLUCOSE,POINT OF CARE 84 MG/DL (70-110)
[2023-08-05 20:06] VITALS: BP 94/65; PULSE 73; RESP 20; TEMP 98.2
[2023-08-06 03:46] LABS: GLUCOMETER DEV NAME(LOC) 6S.2; GLUCOSE,POINT OF CARE 207 MG/DL (70-110)
[2023-08-06 04:38] VITALS: BP 93/60; PULSE 72; RESP 18; TEMP 98.1
[2023-08-06 06:35] LABS: GLUCOMETER DEV NAME(LOC) 6S.2; GLUCOSE,POINT OF CARE 101 MG/DL (70-110)
[2023-08-06 09:07] VITALS: BP 104/66; PULSE 65; RESP 18; TEMP 98.2
[2023-08-06 16:37] VITALS: BP 99/58; PULSE 57; RESP 18; TEMP 98
[2023-08-06 19:13] VITALS: BP 104/60; PULSE 66; RESP 18; TEMP 97.6
[2023-08-07 01:16] LABS: GLUCOMETER DEV NAME(LOC) 4E.2; GLUCOSE,POINT OF CARE 113 MG/DL (70-110)
[2023-08-07 01:16] LABS: GLUCOMETER DEV NAME(LOC) 4E.2; GLUCOSE,POINT OF CARE 107 MG/DL (70-110)
[2023-08-07 01:16] LABS: GLUCOMETER DEV NAME(LOC) 4E.2; GLUCOSE,POINT OF CARE 108 MG/DL (70-110)
[2023-08-07] MEDS ORDERED: SODIUM CHLORIDE 0.9% 500 ML IV ONE (01:46)
[2023-08-07 04:31] VITALS: BP 98/56; PULSE 58; RESP 18; TEMP 97.7
[2023-08-07 10:09] VITALS: BP 90/52; PULSE 57; RESP 19; TEMP 98.1
[2023-08-07 11:04] LABS: COVID AG,FIA SOURCE NASAL SWAB
[2023-08-07 11:29] LABS: SARS-COV2 (COVID) ANTIGEN,FIA Negative (Negative)
[2023-08-07 12:16] LABS: GLUCOMETER DEV NAME(LOC) 4E.2; GLUCOSE,POINT OF CARE 85 MG/DL (70-110)
[2023-08-07 12:16] LABS: GLUCOMETER DEV NAME(LOC) 4E.2; GLUCOSE,POINT OF CARE 106 MG/DL (70-110)
[2023-08-07 15:59] VITALS: BP 111/62; PULSE 57; RESP 19; TEMP 98
[2023-08-07 18:10] LABS: GLUCOMETER DEV NAME(LOC) 6S.2; GLUCOSE,POINT OF CARE 92 MG/DL (70-110)
[2023-08-07 19:35] VITALS: BP 96/55; PULSE 61; RESP 18; TEMP 97.9
[2023-08-08 03:36] LABS: GLUCOMETER DEV NAME(LOC) 6S.2; GLUCOSE,POINT OF CARE 103 MG/DL (70-110)
[2023-08-08 05:04] VITALS: BP 96/58; PULSE 59; RESP 18; TEMP 97.6
[2023-08-08 07:17] LABS: BASOPHILS % (AUTO) 0.8 % (0.0-2.0); EOSINOPHILS % (AUTO) 5.9 % (1.0-6.0); HEMATOCRIT 42.4 % (36-46); HEMOGLOBIN 14.1 g/dL (12.0-16.0); LYMPHOCYTES # (AUTO) 1.5 K/uL (1.0-4.8); LYMPHOCYTES % (AUTO) 19.5 % (22.0-44.0); MEAN CORPUSCULAR HEMOGLOBIN 29.5 pg (26.0-34.0); MEAN CORPUSCULAR HGB CONC 33.2 G/dL (31.0-37.0); MEAN CORPUSCULAR VOLUME 89 fL (80-100); MONOCYTES # (AUTO) 0.7 K/uL (0.1-1.0); MONOCYTES % (AUTO) 9.6 % (2.0-9.0); NEUTROPHILS # (AUTO) 4.9 K/uL (1.8-7.7); NEUTROPHILS % (AUTO) 64.2 % (40.0-70.0); PLATELET COUNT (AUTO) 516 K/uL (150-450); RED BLOOD CELL COUNT(AUTO) 4.78 MIL/uL (4.00-5.20); WHITE BLOOD COUNT (AUTO) 7.7 K/uL (4.5-11.0)
[2023-08-08 07:33] LABS: ANION GAP 8 mmol/L (8-16); CALCIUM, TOTAL 9.8 mg/dL (8.8-10.5); CARBON DIOXIDE 26 mmol/L (22-29); CHLORIDE 103 mmol/L (98-107); GLOMERULAR FILTR. RATE CALC > 60 mL/min (>60); GLUCOSE,RANDOM 104 mg/dL (70-110); POTASSIUM 3.7 mmol/L (3.5-5.1); SODIUM SERUM 137 mmol/L (136-145); UREA NITROGEN, BLOOD 10 mg/dL (7-18)
[2023-08-08 08:16] VITALS: BP 98/60; PULSE 60; RESP 19; TEMP 97.7
[2023-08-08 13:31] LABS: GLUCOMETER DEV NAME(LOC) 6N.2B; GLUCOSE,POINT OF CARE 96 MG/DL (70-110)
[2023-08-08 13:31] LABS: GLUCOMETER DEV NAME(LOC) 4E.2; GLUCOSE,POINT OF CARE 96 MG/DL (70-110)
[2023-08-08 14:55] VITALS: BP 107/59; PULSE 58; RESP 19; TEMP 97.7
[2023-08-08] MEDS ORDERED: ATOR40TA28 PO (15:38)
== END 2023-08-08 17:55 | DRG 45 ==
LOC: EMS 08:37 → 5S 10:00 → 6S 07-27 21:58
PROVIDERS: ADMIT Internal Medicine; ATTEND Internal Medicine
DX: I63.9 Cerebral infarction, unspecified (principal); G92.8 Other toxic encephalopathy; F31.4 Bipolar disorder, current episode depressed, severe, without psychotic features; K61.2 Anorectal abscess; Z20.822 Contact with and (suspected) exposure to COVID-19; E78.5 Hyperlipidemia, unspecified; E11.9 Type 2 diabetes mellitus without complications; J45.909 Unspecified asthma, uncomplicated; Z53.20 Procedure and treatment not carried out because of patient's decision for unspecified reasons; F10.10 Alcohol abuse, uncomplicated; Z87.891 Personal history of nicotine dependence; Z88.6 Allergy status to analgesic agent
CPT/HCPCS: 70450; 70496; 70498; 70551; 71045; 72132; 73701; 74230; 80048; 80053; 80061; 80307; 81001; 82962; 83721; 84145; 84443; 84484; 85025; 85610; 92507; 92526; 92610; 92611; 93005; 93306; 93308; 93880; 97110; 97112; 97163; 97167; 97530; 97535; 99291; G0378; J0696; J1170; J1644; J3490; J7030; J7040; J7050; Q9967; 36415-L1; 36415-TC

== ENCOUNTER 2023-08-14 15:15 | Emergency (ER) | payer MEDICAID ==
[~2023-08-14] VITALS: Ht 167.6 cm; Wt 63.6 kg
[~2023-08-14 15:15] MED LIST changes: +ALBU18HF12 IH; +ALPR0.5T PO; -ASPI-1444 PO; +ASPI81TA87 PO; +ATOR-2 PO; +ATOR40TA28 PO; +BISA10SU11 PR; +BUDE3CAP7 PO; +BUPR-317 PO; +CEFT1VIA65 IV; +CLOP75TA60 PO; +CYCL-397 PO; +DOCU100C33 PO; +FLUO40CA PO; +INSU100V SQ; +LIDO700A15 TD; +METF-81 PO; +METR500 IV; +MULT-248 PO; +PANT-31 PO; +QUET25TA PO; +TRAM50TA5 PO; +UMEC1DIS IH; +ZOLP-280 PO
[2023-08-14 17:32] VITALS: TEMP 98.2
[2023-08-14] MEDS ORDERED: 0.9% SODIUM CHLORIDE 10 ML SYRINGE IVP PRN (18:45)
[2023-08-14] MEDS ORDERED: SODIUM CHLORIDE 0.9% 100 ML ONE (19:01)
[2023-08-14] MEDS ORDERED: IOHEXOL 350 MG/ML 100 ML VIAL ONE (19:01)
[2023-08-14] MEDS: CefTRIAXone 1 GM/DEXTROSE 50 ML IV ONE (19:07)
[2023-08-14] MEDS: SODIUM CHLORIDE 0.9% 1,900 ML IV ONE (19:08)
[2023-08-14] MEDS: ONDANSETRON HCL 4 MG/2 ML VIAL IVP ONE (19:08)
[2023-08-14] MEDS: HYDROmorphone HCL 2 MG/ML SYRINGE IVP ONE (19:08)
[2023-08-14 19:40] LABS: BASOPHILS % (AUTO) 0.6 % (0.0-2.0); EOSINOPHILS % (AUTO) 5.5 % (1.0-6.0); HEMATOCRIT 43.6 % (36-46); HEMOGLOBIN 14.6 g/dL (12.0-16.0); LYMPHOCYTES # (AUTO) 1.3 K/uL (1.0-4.8); LYMPHOCYTES % (AUTO) 14.2 % (22.0-44.0); MEAN CORPUSCULAR HEMOGLOBIN 29.6 pg (26.0-34.0); MEAN CORPUSCULAR HGB CONC 33.4 G/dL (31.0-37.0); MEAN CORPUSCULAR VOLUME 89 fL (80-100); MONOCYTES # (AUTO) 0.6 K/uL (0.1-1.0); MONOCYTES % (AUTO) 7.1 % (2.0-9.0); NEUTROPHILS # (AUTO) 6.4 K/uL (1.8-7.7); NEUTROPHILS % (AUTO) 72.6 % (40.0-70.0); PLATELET COUNT (AUTO) 488 K/uL (150-450); RED BLOOD CELL COUNT(AUTO) 4.93 MIL/uL (4.00-5.20); WHITE BLOOD COUNT (AUTO) 8.8 K/uL (4.5-11.0)
[2023-08-14 19:53] LABS: INR 1.2 (0.9-1.1); PROTHROMBIN TIME 12.4 SEC (9.4-11.6)
[2023-08-14 19:59] LABS: B-TYPE NATRIURETIC PEPTIDE 11 pg/mL (0-100)
[2023-08-14 20:02] LABS: ANION GAP 8 mmol/L (8-16); CALCIUM, TOTAL 9.9 mg/dL (8.8-10.5); CARBON DIOXIDE 26 mmol/L (22-29); CHLORIDE 102 mmol/L (98-107); CREATININE 0.82 mg/dL (0.60-1.30); GLOMERULAR FILTR. RATE CALC > 60 mL/min (>60); GLUCOSE,RANDOM 121 mg/dL (70-110); POTASSIUM 3.7 mmol/L (3.5-5.1); SODIUM SERUM 136 mmol/L (136-145); TROPONIN I-HIGH SENSITIVITY 4 ng/L (<51); UREA NITROGEN, BLOOD 16 mg/dL (7-18)
[2023-08-14 20:06] LABS: ALANINE AMINOTRANSFERASE 25 U/L (12-78); ALBUMIN 2.9 g/dL (3.4-5.0); ALKALINE PHOSPHATASE 106 U/L (46-116); ASPARTATE AMINOTRANSFERASE 30 U/L (15-37); BILIRUBIN,TOTAL 0.3 mg/dL (0.1-1.0); LIPASE 44 U/L (16-77); TOTAL PROTEIN, SERUM 7.9 g/dL (6.4-8.2)
[2023-08-14 20:56] LABS: COVID AG,FIA SOURCE NASAL SWAB
[2023-08-14 21:04] VITALS: BP 133/78; PULSE 78; RESP 18
[2023-08-14 21:14] LABS: SARS-COV2 (COVID) ANTIGEN,FIA Negative (Negative)
[2023-08-14] MEDS ORDERED: ACET-2080 PO (22:04)
[2023-08-14] MEDS ORDERED: POLY119P3 PO (22:08)
== END 2023-08-15 01:03 | disposition home or self-care (01) ==
LOC: EMS 15:17
DX: K61.1 Rectal abscess (principal); F31.9 Bipolar disorder, unspecified; E11.9 Type 2 diabetes mellitus without complications; I25.2 Old myocardial infarction; F17.210 Nicotine dependence, cigarettes, uncomplicated; Z86.73 Personal history of transient ischemic attack (TIA), and cerebral infarction without residual deficits; Z88.5 Allergy status to narcotic agent; Z88.6 Allergy status to analgesic agent; Z20.822 Contact with and (suspected) exposure to COVID-19
CPT/HCPCS: 99285; 74177; 96365; 71045; 96375; 87426; 80053; 83605; 83690; 83880; 84484; 85025; 85610; 87040; 36415; 93005; 84145; J0696; J1170; J2405; Q9967; J7030; J7050